=== PATIENT | male | born 1960 | race African-American/Black ===

== ENCOUNTER 2018-11-12 06:44 | Day surgery (SDC) | payer OTHER ==
[2018-11-12 07:46] VITALS: BMI 32.6
[2018-11-12] MEDS ORDERED: BUPIVACAINE HCL/PF 0.5% (5MG/ML) 10 ML VIAL ONE (08:58)
[2018-11-12] MEDS ORDERED: MORPHINE SULFATE 10 MG/1 ML *VIAL ONE (08:59)
[2018-11-12] MEDS ORDERED: fentaNYL CITRATE 250 MCG/5 ML VIAL ONE (09:12)
[2018-11-12] MEDS ORDERED: PROPOFOL 20 ML ONE ×2 (09:12)
[2018-11-12] MEDS ORDERED: ROCURONIUM BROMIDE 50 MG/5 ML VIAL ONE (09:12)
[2018-11-12] MEDS ORDERED: SUCCINYLCHOLINE CHLORIDE 200 MG/10 ML VIAL ONE (09:12)
[2018-11-12] MEDS ORDERED: MIDAZOLAM HCL 2 MG/2 ML SINGLE DOSE VIAL ONE (09:12)
[2018-11-12] MEDS ORDERED: CLINDAMYCIN PHOSPHATE 600 MG/4 ML VIAL ONE (09:32)
[2018-11-12] MEDS ORDERED: ceFAZolin SODIUM 1 GM VIAL ONE (09:32)
[2018-11-12] MEDS ORDERED: LIDOCAINE HCL/PF 2% SDV 5ML VIAL ONE (09:32)
[2018-11-12] MEDS ORDERED: DEXAMETHASONE SOD PHOSPHATE 4 MG/1 ML VIAL ONE (09:32)
[2018-11-12] MEDS ORDERED: ONDANSETRON 4 MG/2 ML VIAL ONE (09:32)
[2018-11-12] MEDS ORDERED: NEOSTIGMINE METHYLSULFATE 0.5 MG/ML - 10 ML MDV ONE (09:50)
[2018-11-12] MEDS ORDERED: GLYCOPYRROLATE 0.2 MG/1 ML VIAL ONE (09:51)
[2018-11-12] MEDS ORDERED: ONDANSETRON 4 MG/2 ML VIAL IVPUSH PRN (10:23)
[2018-11-12] MEDS ORDERED: oxyCODONE HCL 5 MG TABLET PO PRN ×2 (10:23)
[2018-11-12] MEDS ORDERED: PROMETHAZINE HCL 25 MG/1 ML VIAL IVPUSH PRN (10:23)
[2018-11-12 11:18] VITALS: TEMP 98
--- NOTE | 2018-11-12 11:46 | OP ---
DATE OF OPERATION: 11/12/2018 PREOPERATIVE DIAGNOSIS: Torn medial meniscus to the right knee. POSTOPERATIVE DIAGNOSES: Torn medial and lateral meniscus to the right knee with hypertrophic synovium, chondromalacia, joint debris, and tearing of the medial and lateral meniscus. PROCEDURES PERFORMED: Arthroscopy of the right knee with partial medial and lateral meniscectomy, chondroplasty, synovectomy, joint debridement SURGEON: Kalpesh Goodman MD CARRIER OPERATOR: Colt SWEENEY ANESTHESIOLOGIST: Jung Westbrook MD ANESTHESIA: General anesthesia. OPERATION IN DETAIL: The procedure consisted of the patient being brought in the operating room and gently transferred from the stretcher to the OR table with all bony prominences well padded. The right leg was prepared and draped in a sterile fashion. The patient was given intravenous antibiotics and copious irrigation throughout the procedure to minimize the risk for infection. A complete risks, benefits, and alternatives discussion was conducted with the patient which was inclusive of but not limited to infection, bleeding, , paralysis, increased pain, need for repeat surgery. The patient asked questions, understood the nature of the procedure, and desired to proceed with surgical treatment. Following sterile preparation and draping of the right leg, an appropriate timeout was conducted with the patient, which was inclusive of but not limited to side of surgery, surgeon, anesthesiologist, type of anesthesia. Following sterile preparation and draping of the right leg, the leg was exsanguinated using the rubber Esmarch bandage and the tourniquet inflated to 350 mmHg. Suprapatellar and medial and lateral joint line portals were used to introduce the arthroscope and arthroscopic instruments. The knee was examined. There was noted to be hypertrophic synovium in the suprapatellar pouch. A partial synovectomy was performed. The medial and lateral gutters were without plica or loose body. The medial meniscus was found to have a tear of the posterior horn which was resected using a shaver, radiofrequency wand and suction biters to appropriate angle and shape. The edge was smoothed using radiofrequency wand. There was noted to be joint debris in the intercondylar region and a joint debridement was performed. The cruciate ligaments were found to be intact. The lateral meniscus was found to have a tear of the posterior horn and this was resected using a shaver and radiofrequency wand. The inferior surface of the patella was noted to have on re-examination evidence of chondromalacic changes and these were smoothed using shaver and radiofrequency wand. The knee was then copiously irrigated with sterile saline irrigant. The wounds were closed with 4-0 undyed Vicryl, followed by Steri-Strips, Xeroform, 4 x 4's, sterile Webril, Dipesh bandage, and knee immobilizer. The tourniquet was deflated after approximately 25 minutes' tourniquet time. There were no intraoperative complications. KALPESH GOODMAN M.D. [id number] MTDD
[2018-11-12 13:21] VITALS: BP 139/89; PULSE 78
== END 2018-11-12 13:45 | disposition home or self-care (01) ==
LOC: FASU 06:44
PROVIDERS: ATTEND Orthopaedic Surgery
PROC: 0SBC4ZZ Excision of Right Knee Joint, Percutaneous Endoscopic Approach (ICD-10-PCS; 2018-11-12)
PROC: 0SBC4ZZ Excision of Right Knee Joint, Percutaneous Endoscopic Approach (ICD-10-PCS; 2018-11-12)
PROC: 0SBC4ZZ Excision of Right Knee Joint, Percutaneous Endoscopic Approach (ICD-10-PCS; principal; 2018-11-12 09:44)
DX: S83.241A Other tear of medial meniscus, current injury, right knee, initial encounter (principal); S83.242A Other tear of medial meniscus, current injury, left knee, initial encounter; M67.261 Synovial hypertrophy, not elsewhere classified, right lower leg; M22.41 Chondromalacia patellae, right knee; M25.861 Other specified joint disorders, right knee; X58.XXXA Exposure to other specified factors, initial encounter; Y93.9 Activity, unspecified; Y92.9 Unspecified place or not applicable
CPT/HCPCS: 94760